=== PATIENT | male | born 1975 | race Caucasian/White ===

== ENCOUNTER 2019-11-05 08:46 | Outpatient (CLI) | payer BC ==
--- NOTE | 2019-11-05 09:31 | ULT ---
EXAM: US Abdominal CLINICAL HISTORY: Diabetes. Elevated LFTs.. COMPARISON: None. FINDINGS: Pancreas: Obscured by bowel gas IVC: Obscured by bowel gas Aorta: Obscured by bowel gas Liver:Heterogeneous echotexture, limiting evaluation for hepatic masses and intrahepatic biliary dila tation. Hepatomegaly, right hepatic lobe measuring 23.5 cm Gallbladder: No sonographic evidence of cholelithiasis, gallbladder wall thickening or pericholecysti c fluid Rivers's sign:Negative CBD: Cannot be assessed due to bowel gas Portal vein: Patent. Appropriate directional flow. Right kidney: Normal cortical echotexture. No hydronephrosis. Right kidney measuring 12.3 x 6.2 x 6. 0 cm in length. Left kidney: Normal cortical echotexture. No hydronephrosis . Left kidney measuring 12.9 x 6.8 x 7.1 cm in length Spleen: Splenomegaly. Spleen measures 14.7 cm IMPRESSION: 1. Hepatosplenomegaly. 2. Increased echogenicity of liver which may be due to hepatic steatosis or hepatocellular disease. T here is concern for hepatic masses, abdomen MRI or liver mass protocol CT is recommended.
== END 2019-11-05 08:47 | disposition home or self-care (01) ==
LOC: BICULT 08:46
PROVIDERS: ATTEND Nurse Practitioner Family
DX: E11.65 Type 2 diabetes mellitus with hyperglycemia (principal); R94.5 Abnormal results of liver function studies; R16.2 Hepatomegaly with splenomegaly, not elsewhere classified
CPT/HCPCS: 93975

== ENCOUNTER 2022-04-01 08:49 | Day surgery (SDC) | payer OTHER ==
[2022-04-01] MEDS ORDERED: Heparin 1,000 UNITS/ML VIAL ONE (09:53)
[2022-04-01] MEDS ORDERED: cefTRIAXone\\ROCEPHIN 2 GM VIAL ONE (10:05)
[2022-04-01] MEDS ORDERED: cefTRIAXone\\ROCEPHIN 2 GM in Sodium Chloride 0.9% 100 ML IVPB SCH (10:15)
[2022-04-01] MEDS ORDERED: Vancomycin 1 GM in Premix Bag 1 BAG IVPB SCH (10:15)
[2022-04-01 10:21] LABS: #Eosinphils 0.2 thou/uL (0.0-0.7); #Lymphocytes 1.1 thou/uL (1.20-3.40); #Monocytes 0.4 thou/uL (0.11-0.59); #Neutrophils 5.6 thou/uL (1.40-6.50); %Eosinophils 2.6 % (0.0-10.0); %Lymphocytes 15.3 % (21.0-51.0); %Monocytes 5.6 % (0.0-10.0); %Neutrophils 76.5 % (42.0-75.0); Hemoglobin 14.7 g/dL (14.0-18.0); Mean Corpuscular HGB CONC 32.7 g/dL (32.0-36.0); Mean Corpuscular Hemoglobin 29.8 pg (27.0-31.0); Mean Platelet Volume 7.5 fL (7.4-10.4); Platelet Count 215 thou/uL (130-400); RBC Distribution Width 13.3 % (11.5-14.5); Red Blood Cell (RBC) Count 4.94 mill/uL (4.70-6.10); White Blood Cell (WBC) Count 7.3 thou/uL (4.8-10.8)
[2022-04-01 10:37] VITALS: BP 137/68; TEMP 98.4
[2022-04-01 10:54] LABS: ALT (SGPT) 21 U/L (8-55); AST (SGOT) 37 U/L (5-34); Albumin 3.7 g/dL (3.5-5.0); Alkaline Phosphatase 91 U/L (40-110); Anion Gap 14 mmol/L (10-20); BUN (Urea Nitrogen) 11 mg/dL (8.9-20.6); Bilirubin, Total 0.3 mg/dL (0.2-1.2); CRP (Inflammatory) 1.71 mg/dL (= or < 0.5); Calc. Creatinine Clearance 0 mL/min (70-130); Calcium 9.3 mg/dL (7.8-10.44); Carbon Dioxide 25 mmol/L (22-29); Chloride 102 mmol/L (98-107); Globulin 3.8 g/dL (2.4-3.5); Glucose 185 mg/dL (70-105); Potassium 5.3 mmol/L (3.5-5.1); Protein, Total 7.5 g/dL (6.0-8.3); Sodium 136 mmol/L (136-145)
== END 2022-04-01 12:38 | disposition home or self-care (01) ==
LOC: SPEC 08:49
PROVIDERS: ATTEND Internal Medicine Infectious Disease
PROC: 02HV33Z Insertion of Infusion Device into Superior Vena Cava, Percutaneous Approach (ICD-10-PCS; principal; 2022-04-01)
DX: M86.271 Subacute osteomyelitis, right ankle and foot (principal); Z79.2 Long term (current) use of antibiotics; Z88.0 Allergy status to penicillin
CPT/HCPCS: 36569; 80053; 85025; 85652; 86140; 96365; 96367; C1751; J0696; J1644; J3370; J3490

== ENCOUNTER 2022-04-16 10:48 | Outpatient (CLI) | payer OTHER | END 2022-04-16 10:49 | disposition home or self-care (01) | LOC: BICRAD 10:48 | PROVIDERS: ATTEND Internal Medicine Infectious Disease | DX: M86.271 Subacute osteomyelitis, right ankle and foot (principal) ==

== ENCOUNTER 2022-05-13 10:30 | Outpatient (CLI) | payer OTHER | END 2022-05-13 10:31 | disposition home or self-care (01) | LOC: BICRAD 10:30 | PROVIDERS: ATTEND Internal Medicine Infectious Disease | DX: M86.271 Subacute osteomyelitis, right ankle and foot (principal) ==

== ENCOUNTER 2022-11-12 12:19 | Outpatient (CLI) | payer OTHER ==
[2022-11-12] MEDS ORDERED: Magnevist 469MG/ML 20 ML VIAL ONE (16:15)
== END 2022-11-12 12:20 | disposition home or self-care (01) ==
LOC: SCSMRI 12:19 → BICMRI 12:20
PROVIDERS: ATTEND Nurse Practitioner Family
DX: E11.621 Type 2 diabetes mellitus with foot ulcer (principal); R60.0 Localized edema
CPT/HCPCS: 82565; A9579